=== PATIENT | female | born 1945 | race Caucasian/White ===

== ENCOUNTER 2019-08-22 08:08 | Day surgery (SDC) | payer MEDICARE ==
[2019-08-21 15:07] VITALS: BMI 29.2
[2019-08-22 08:36] LABS: #Lymphocytes 0.9 thou/uL (1.20-3.40); #Monocytes 0.3 thou/uL (0.11-0.59); #Neutrophils 2.3 thou/uL (1.40-6.50); %Eosinophils 1.2 % (0.0-10.0); %Lymphocytes 24.2 % (21.0-51.0); %Monocytes 9.3 % (0.0-10.0); %Neutrophils 64.3 % (42.0-75.0); Hemoglobin 13.1 g/dL (12.0-16.0); Mean Corpuscular HGB CONC 31.8 g/dL (32.0-36.0); Mean Corpuscular Hemoglobin 27.8 pg (27.0-31.0); Mean Corpuscular Volume 87.5 fL (78.0-98.0); Mean Platelet Volume 6.8 fL (7.4-10.4); Platelet Count 323 thou/uL (130-400); RBC Distribution Width 14.5 % (11.5-14.5); Red Blood Cell (RBC) Count 4.72 mill/uL (4.20-5.40); White Blood Cell (WBC) Count 3.6 thou/uL (4.8-10.8)
[2019-08-22 08:44] LABS: PTT 30.6 sec (22.9-36.1); Prothrombin Time 13.4 sec (12.0-14.7)
[2019-08-22] MEDS ORDERED: Sodium Bicarbonate 2.5 MEQ/5 ML VIAL ONE (09:04)
[2019-08-22] MEDS ORDERED: Midazolam HCl 2 mg/2 ml Vial ONE (09:04)
[2019-08-22] MEDS ORDERED: Fentanyl 100 MCG/2 ML VIAL ONE (09:04)
[2019-08-22 10:53] VITALS: BP 177/88; TEMP 99.2
--- NOTE | 2019-08-22 12:24 | CT ---
CT-guided bone marrow biopsy and aspiration: DATE: 08/22/2019 HISTORY: 74-year-old female with leukopenia and anemia TECHNIQUE: Signed informed consent obtained. Patient placed prone on CT table. Skin of lower back prepared and d raped in usual sterile fashion. 25-gauge needle used to apply buffered lidocaine superficially, then at the periosteum of the right PSIS. 11-gauge [employer] bone marrow biopsy needle with tro car advanced with distal tip slightly deep to the posterior cortical surface of the PSIS. Trocar removed. Marrow aspiration performed with 2 syringes, 3 mL in first syringe and 6 mL in second syring e, both of which were given to edger technician from laboratory. Next, the electric power sales route driver was connected to the biopsy needle. The entire power sales route driver and 11-gauge needle set was advanced and retr acted, yielding a bone marrow core tissue sample, which was also given to the metallurgical laboratory assistant. Compression was held at the puncture site until hemostasis achieved. Patient tolerated pr ocedure well. No complications. IMPRESSION: Successful CT-guided bone marrow biopsy and aspiration.
--- NOTE | 2019-08-23 13:19 | CT ---
CT-guided bone marrow biopsy and aspiration: DATE: 08/22/2019 HISTORY: 74-year-old female with leukopenia and anemia TECHNIQUE: Signed informed consent obtained. Patient placed prone on CT table. Skin of lower back prepared and d raped in usual sterile fashion. 25-gauge needle used to apply buffered lidocaine superficially, then at the periosteum of the right PSIS. 11-gauge [employer] bone marrow biopsy needle with tro car advanced with distal tip slightly deep to the posterior cortical surface of the PSIS. Trocar removed. Marrow aspiration performed with 2 syringes, 3 mL in first syringe and 6 mL in second syring e, both of which were given to ecg technician from laboratory. Next, the electric power personal driver was connected to the biopsy needle. The entire power personal driver and 11-gauge needle set was advanced and retr acted, yielding a bone marrow core tissue sample, which was also given to the blood bank laboratory professional. Compression was held at the puncture site until hemostasis achieved. Patient tolerated pr ocedure well. No complications. IMPRESSION: Successful CT-guided bone marrow biopsy and aspiration. Transcribed Date/Time: 08/23/2019 1:19 PM
== END 2019-08-22 11:35 | disposition home or self-care (01) ==
LOC: SDC 08:08
PROVIDERS: ATTEND Internal Medicine Hematology & Oncology
PROC: 07DR3ZX Extraction of Iliac Bone Marrow, Percutaneous Approach, Diagnostic (ICD-10-PCS; principal; 2019-08-22)
DX: D72.819 Decreased white blood cell count, unspecified (principal); D64.9 Anemia, unspecified; E11.9 Type 2 diabetes mellitus without complications; I10 Essential (primary) hypertension; E89.2 Postprocedural hypoparathyroidism; J30.2 Other seasonal allergic rhinitis; Z79.84 Long term (current) use of oral hypoglycemic drugs; Z79.899 Other long term (current) drug therapy
CPT/HCPCS: 20225; 36415; 77012; 85025; 85097; 85610; 85730; 88184; 88237; 88264; 88280; 88305; 88311; 88313; 88341; 88342; 88365; J2250; J3010

== ENCOUNTER 2019-08-27 10:03 | Outpatient (CLI) | payer MEDICARE ==
--- NOTE | 2019-08-27 11:58 | PET ---
PET SCAN WITH CT ATTENUATION CORRECTION: HISTORY: Sharda Strohm macroglobulinemia. Multiple myeloma not having achieved remission. COMPARISON: None. TECHNIQUE: PET scan with CT attenuation correction is performed from the base of the brain to the proximal thigh s following the intravenous administration of 11.4 mCi of [id number]. FINDINGS: Head and neck: No abnormal FDG localization. CHEST: No abnormal FDG localization. Abdomen pelvis: Physiologic distribution of radiotracer. No abnormal FDG localization. CT used for attenuation correc tion images extensive diverticula throughout the colon. No evidence of diverticulitis. There is a calcified uterine leiomyoma. Osseous structures: There are no areas of abnormal FDG localization. Mild degenerative changes throughout the lumbar spin e. No pathologic fracture. No spondylolisthesis or spondylolysis. IMPRESSION: No evidence of abnormal fluorodeoxyglucose localization in the osseous structures. Transcribed Date/Time: 08/27/2019 12:03 PM
== END 2019-08-27 10:04 | disposition home or self-care (01) ==
LOC: PET 10:03
PROVIDERS: ATTEND Internal Medicine Hematology & Oncology
DX: C90.00 Multiple myeloma not having achieved remission (principal)
CPT/HCPCS: 78815; A9552